=== PATIENT | female | born 1955 | race American Indian/Alaskan Native ===

== ENCOUNTER 2017-01-12 10:03 | Emergency (ER) | payer OTHER ==
[2017-01-12 13:41] VITALS: BP 126/79
[2017-01-12] MEDS ORDERED: NORCO 5/325 PO ONE (13:59)
--- NOTE | 2017-01-12 14:11 | Emergency Department Report ---
ED Extremity Problem HPI - General Chief complaint: Extremity Injury, Lower Stated complaint: RT KNEE SWOLLEN Time Seen by Provider: 01/12/17 13:43 Source: patient, family Mode of arrival: Wheelchair Limitations: Physical Limitation - History of Present Illness Initial comments: Patient here complaining of swelling and pain in right knee for 4 days. She denies any injury or trauma but reports that she has arthritis. She says she has been walking and noticed after she was walking her knee pain is worse pain is 8 out of 10 to her right knee. Denies any bruising or discoloration. Denies any numbness or tingling to lower extremity. Denies any fall. She says she took tramadol and it helped a little and she also took 2 aspirin this morning and it seemed to help a little MD Complaint: joint swelling, joint paint Onset/Timin -: days(s) Location: right, knee History of Same: Yes -: Yes arthralgia, No fever, No associated dyspnea, No associated chest pain Radiation: none Severity scale (0 -10): 6 Quality: aching Consistency: intermittent Improves with: immobilization, rest Worsens with: weight bearing, walking, exertion Associated Symptoms: arthralgias. denies: chest pain, shortness of breath, fever, myalgias, rash - Related Data Previous Rx's Medication Instructions Recorded Last Taken Type Ibuprofen [Motrin] 600 mg PO Q8H PRN #15 tablet 01/12/17 Unknown Rx Allergies Allergy/AdvReac Type Severity Reaction Status Date / Time No Known Allergies Allergy Verified 01/12/17 11:17 ED Review of Systems ROS: Stated complaint: RT KNEE SWOLLEN Other details as noted in HPI Comment: All other systems reviewed and negative Constitutional: denies: chills, fever Respiratory: no symptoms reported Cardiovascular: denies: chest pain, palpitations, edema, syncope Gastrointestinal: denies: abdominal pain, nausea, vomiting Musculoskeletal: arthralgia. denies: back pain, joint swelling, myalgia Skin: denies: rash Neurological: denies: headache, weakness, numbness, paresthesias, confusion, abnormal gait, vertigo ED Past Medical Hx - Past Medical History Previous Medical History?: Yes Hx Hypertension: Yes Hx Diabetes: Yes ("PREDIABETIC" ..NO MEDICATIONS) Hx Arthritis: Yes Additional medical history: THYROID. CHRONIC NECK / HEAD PAIN. OBESITY - Surgical History Past Surgical History?: Yes Additional Surgical History: TUBAL LIGATION. . HYSTERECTOMY - Family History Family history: no significant - Social History Smoking Status: Never Smoker Substance Use Type: Alcohol, Prescribed - Medications Home Medications: Home Medications Medication Instructions Recorded Confirmed Last Taken Type Ibuprofen [Motrin] 600 mg PO Q8H PRN #15 tablet 01/12/17 Unknown Rx ED Physical Exam - General Limitations: Physical Limitation General appearance: alert, in no apparent distress - Head Head exam: Present: atraumatic, normocephalic, normal inspection - Eye Eye exam: Present: normal appearance, PERRL, EOMI Pupils: Present: normal accommodation - ENT ENT exam: Present: normal exam, normal orophraynx, mucous membranes moist. Absent: TM's normal bilaterally, normal external ear exam - Neck Neck exam: Present: normal inspection, full ROM. Absent: tenderness, meningismus, thyromegaly - Respiratory Respiratory exam: Present: normal lung sounds bilaterally. Absent: respiratory distress, chest wall tenderness - Cardiovascular Cardiovascular Exam: Present: regular rate, normal rhythm, normal heart sounds - GI/Abdominal GI/Abdominal exam: Present: soft, normal bowel sounds. Absent: distended, tenderness, guarding, rebound, rigid - Expanded Lower Extremity Exam Right Hip exam: Present: normal inspection, full ROM. Absent: tenderness, swelling, abrasion, laceration, ecchymosis, deformity, crepidus, dislocation, erythema, external rotation, internal rotation, shortening, pelvic stability Upper Leg exam: Present: normal inspection, full ROM. Absent: tenderness, swelling, abrasion, laceration, ecchymosis, deformity, crepidus, dislocation, erythema Knee exam: Present: normal inspection, full ROM (patient with full range of motion to right knee but she said it hurts when she flexes her knee. No pain with extension.), swelling (mild swelling to anterior right knee), full knee extension. Absent: tenderness, abrasion, laceration, ecchymosis, deformity, crepidus, dislocation, erythema, effusion, pain w/ pronation/supination, posterior draw sign, pain/laxity with valgus, pain/laxity with varus Lower Leg exam: Present: normal inspection, full ROM. Absent: tenderness, swelling, abrasion, laceration, ecchymosis, deformity, crepidus, dislocation, erythema, palpable cord, Dami's sign Ankle exam: Present: normal inspection, full ROM. Absent: tenderness, swelling , abrasion, laceration, ecchymosis, deformity, crepidus, dislocation, erythema Foot/Toe exam: Present: normal inspection, full ROM. Absent: tenderness, swelling, abrasion, laceration, ecchymosis, deformity, crepidus, dislocation, erythema, amputation, puncture wound, foreign body, calcaneal tenderness, tenderness at base of 5th metatarsal, nail avulsion, subungual hematoma Neuro vascular tendon exam: Present: no vascular compromise, significant pain with passive ROM of distal joint (pain with flexion of his knee). Absent: pulse deficit, abnormal cap refill, motor deficit, sensory deficit, tendon deficit, extremity cold to touch, pallor, abnormal 2-point discrimination, decreased fine/light touch, foot drop, peroneal nerve deficit Gait: Positive: observed and limited by pain - Back Exam Back exam: Present: normal inspection, full ROM - Neurological Exam Neurological exam: Present: alert, oriented X3, normal gait, reflexes normal. Absent: motor sensory deficit - Psychiatric Psychiatric exam: Present: normal affect, normal mood - Skin Skin exam: Present: warm, dry, intact, normal color. Absent: rash ED Course Vital Signs 01/12/17 01/12/17 11:15 13:40 Temperature 97.9 F Pulse Rate 82 79 Respiratory 19 18 Rate Blood Pressure 132/82 Blood Pressure 126/79 [Right] O2 Sat by Pulse 100 99 Oximetry - Reevaluation(s) Reevaluation #1: 01/12/17 15:28 Patient given Kenefic 5/325 2 tablets in emergency room which she reports relief of pain - Orthopedic Splinting/Casting Injury #1 Side: right Lower Extremity Injury Location: knee Lower Extremity Immobilizer: Erick wrap ED Medical Decision Making - Radiology Data Radiology results: report reviewed X-ray of right knee reveals severe degenerative changes. No effusion, no fracture or dislocation. - Medical Decision Making ED Course: see Procedure note for details on splinting. She given Kenefic 5/325 mg 2 tablets in emergency room which relieved her knee pain. I discussed x-ray results with her and told her she will need to follow-up with orthopedic regarding severe degenerative changes in her knee. I explained to her that she needed to rest, elevate compress and ice area. Patient is stable in no acute distress. Patient discharged home with prescription for Motrin and to continue tramadol. Critical care attestation.: If time is entered above; I have spent that time in minutes in the direct care of this critically ill patient, excluding procedure time. ED Disposition Clinical Impression: Arthralgia of right knee Osteoarthritis of right knee Qualifiers: Osteoarthritis type: unspecified Qualified Code(s): M17.9 - Osteoarthritis of knee, unspecified Disposition: DISCHARGED TO HOME OR SELFCARE Is pt being admited?: No Does the pt Need Aspirin: No Condition: Stable Instructions: Arthralgia (ED), Knee Exercises (GEN), RICE Therapy (ED) Prescriptions: Ibuprofen [Motrin] 600 mg PO Q8H PRN #15 tablet PRN Reason: Pain Referrals: ASHLEY BRANDT MD [Staff Physician] - 2-3 Days Forms: Work/School Release Form(ED)
--- NOTE | 2017-01-12 14:30 | XRay Report ---
Right knee 3 views: History: Right knee pain/swelling. Findings: Marked narrowing of the medial compartment with minimal lateral and the patellofemoral compartment knee joint. Sclerotic adjacent articular surfaces with osteophyte suggestive severe degenerative changes. Chondrocalcification is noted. Impression: Severe degenerative changes being most pronounced in the medial compartment.
== END 2017-01-12 15:35 | disposition home or self-care (01) ==
LOC: ED 10:03
DX: M17.11 Unilateral primary osteoarthritis, right knee (principal); I10 Essential (primary) hypertension; E11.9 Type 2 diabetes mellitus without complications; G89.29 Other chronic pain; Z90.710 Acquired absence of both cervix and uterus
CPT/HCPCS: 99283

== ENCOUNTER 2017-04-07 08:01 | Outpatient (CLI) | payer OTHER ==
--- NOTE | 2017-04-07 09:22 | Mammography Report ---
Bilateral mammogram: Compared to 03/23/16. CAD study utilized. Findings: Predominance of adipose tissue bilaterally. Circumscribed densities right and left breasts without significant interval change. No microcalcification. Benign calcifications. Benign axillary nodes. Impression: Benign findings. Annual followup recommended. BI-RADS CATEGORY: 2 = Benign ACR BI-RADS MAMMOGRAPHIC CODES: 0 = Needs additional imaging evaluation; 1 = Negative; 2 = Benign; 3 = Probably benign; 4 = Suspicious; 5 = Malignant; 6 = Known biopsy-proven malignancy COMMENT: 1. Dense breast tissue, i.e., adenosis, fibrocystic changes, etc., may obscure an underlying neoplasm. 2. Approximately 10% of cancers are not detected with mammography. 3. A negative mammography report should not delay biopsy if a clinically suspicious mass is present. COMMENT: Patient follow-up letters are generated in [employer].
== END 2017-04-07 08:02 | disposition home or self-care (01) ==
LOC: MAMMO 08:01
PROVIDERS: ATTEND Family Medicine
DX: Z12.31 Encounter for screening mammogram for malignant neoplasm of breast (principal); I10 Essential (primary) hypertension
CPT/HCPCS: 77067; G0202

== ENCOUNTER 2018-04-08 07:42 | Outpatient (CLI) | payer OTHER ==
--- NOTE | 2018-04-08 09:27 | Mammography Report ---
Screening mammogram: There is an intermediate fibroglandular pattern symmetrically distributed bilaterally. There are multiple circumscribed nodules scattered in the upper outer portions of both breasts. The findings are not otherwise remarkable and these findings are unchanged compared to prior exam in March 2016. CAD used. Impression: Stable nodular breast pattern. Recommendation: Annual mammogram followup. BI-RADS CATEGORY: 2 = Benign ACR BI-RADS MAMMOGRAPHIC CODES: 0 = Needs additional imaging evaluation; 1 = Negative; 2 = Benign; 3 = Probably benign; 4 = Suspicious; 5 = Malignant; 6 = Known biopsy-proven malignancy COMMENT: 1. Dense breast tissue, i.e., adenosis, fibrocystic changes, etc., may obscure an underlying neoplasm. 2. Approximately 10% of cancers are not detected with mammography. 3. A negative mammography report should not delay biopsy if a clinically suspicious mass is present.
== END 2018-04-08 07:43 | disposition home or self-care (01) ==
LOC: MAMMO 07:42
PROVIDERS: ATTEND Family Medicine
DX: Z12.31 Encounter for screening mammogram for malignant neoplasm of breast (principal); I10 Essential (primary) hypertension; Z90.710 Acquired absence of both cervix and uterus
CPT/HCPCS: 77067

== ENCOUNTER 2019-04-26 09:36 | Outpatient (CLI) | payer OTHER ==
--- NOTE | 2019-04-26 10:47 | Mammography Report ---
BILATERAL DIGITAL SCREENING MAMMOGRAMS WITH CAD INDICATION: Screening. COMPARISONS: 04/08/2018 and 04/07/2017 FINDINGS: Craniocaudal and mediolateral oblique views of both breasts were obtained using 2-D digital acquisition. In addition to standard review, the examination was analyzed for possible abnormalities using a computer-assisted detection device (iCAD). There are scattered areas of fibroglandular density. A left upper outer parenchymal asymmetry requires additional imaging. On the MLO view, there is sugge stion of a mass measuring at least 2.5 cm. It is not well-demonstrated on the CC view. No suspicious calcifications. A right outer circumscribed mass also requires additional imaging. IMPRESSION: Bilateral asymmetries requiring additional evaluation. Recommend recall for bilateral spot compressio n views and bilateral breast ultrasound. BI-RADS CATEGORY 0: INCOMPLETE - NEED ADDITIONAL IMAGING EVALUATION AND/OR PRIOR MAMMOGRAMS FOR COMP ARISON Information is entered into a reminder system for a target due date for the next mammogram. The resul ts and recommendations were sent to the patient by mail. Signer Name: Javid Engel MD Signed: 04/26/2019 10:43 AM Workstation Name: [id number]
== END 2019-04-26 09:37 | disposition home or self-care (01) ==
LOC: MAMMO 09:36
DX: Z12.31 Encounter for screening mammogram for malignant neoplasm of breast (principal); I10 Essential (primary) hypertension; Z90.710 Acquired absence of both cervix and uterus
CPT/HCPCS: 77067

== ENCOUNTER 2019-06-02 08:46 | Outpatient (CLI) | payer OTHER ==
--- NOTE | 2019-06-02 17:32 | Mammography Report ---
BILATERAL DIGITAL DIAGNOSTIC MAMMOGRAM WITH CAD 06/02/2019 BILATERAL LIMITED BREAST ULTRASOUND INDICATION: Abnormal screening mammogram. Screening recall of both breasts. TECHNIQUE: Digital bilateral mammographic imaging was performed. Spot compression views were obtaine d. Limited ultrasound was performed. This examination was interpreted with the benefit of Computer- ded Detection (CAD) analysis. COMPARISON: Bilateral screening mammogram, 04/26/2019 and 04/08/2018. FINDINGS: Breast Density: There are scattered areas of fibroglandular density. MAMMOGRAPHIC FINDINGS: Right breast: There is a well-circumscribed 8 mm nodular density at the 9:00 position which persists on spot compression images. Left breast: Spot compression images of the upper outer left breast demonstrate a new irregular densi ty at the 1-2:00 position which measures approximately 5.5 x 5.0 cm. There are multiple enlarged lymp h nodes in the axillary tail. ULTRASOUND FINDINGS: Targeted ultrasound evaluation was performed of the area of interest. Right breast: Targeted sonographic evaluation of the upper outer right breast demonstrate multiple sc attered simple and mildly complicated cysts, the largest of which measures 1.5 cm. This corresponds t o the density seen on the mammogram. Left breast: Targeted sonographic evaluation of the left breast demonstrates an irregular solid mass with posterior shadowing. It is difficult to measure this mass due to its indistinct margins but is t hought to measure at least 3.4 X 2.1 cm. There are multiple enlarged lymph nodes within the axillary tail. IMPRESSION: Follow up recommendation: Biopsy BI-RADS Category 5: Highly Suggestive of Malignancy. 1. New irregular mass in the upper outer left breast as described which most likely represents carcin sherif with multiple pathologically enlarged left axillary tail lymph nodes. Ultrasound-guided biopsy an d surgical consultation is recommended. 2. Scattered right breast cysts. A "normal" or negative report should not discourage follow up or biopsy of a clinically significant f inding. A written summary of these findings will be mailed to the patient. The patient will be entered into a mammography reporting system which will generate a reminder letter for the patient's next appointmen t at the appropriate interval. According to the [employer], yearly mammograms are recommended starting at age 40 and continuing as long as a woman is in good health. Breast MRI is recommended for women with an shena roximately 20-25% or greater lifetime risk of breast cancer, including women with a strong family his tory of breast or ovarian cancer and women who have been treated for Hodgkin's disease. Signer Name: Bibi Conte MD Signed: 06/02/2019 5:28 PM Workstation Name: [id number]
--- NOTE | 2019-06-02 18:00 | Ultrasound Report ---
Please see diagnostic mammography report performed the same day. Signer Name: Bibi Conte MD Signed: 06/02/2019 5:56 PM Workstation Name: [id number]
== END 2019-06-02 08:47 | disposition home or self-care (01) ==
LOC: MAMMO 08:46
DX: R92.8 Other abnormal and inconclusive findings on diagnostic imaging of breast (principal); I10 Essential (primary) hypertension; Z90.710 Acquired absence of both cervix and uterus
CPT/HCPCS: 77066

== ENCOUNTER 2019-06-20 14:04 | Outpatient (CLI) | payer OTHER ==
--- NOTE | 2019-06-20 16:03 | Ultrasound Report ---
ULTRASOUND-GUIDED NEEDLE CORE BIOPSY LEFT BREAST WITH CLIP PLACEMENT CLINICAL: Left breast mass at 1:00 10 cm from the nipple. COMPARISON: 06/02/2019 FINDINGS: The procedure was explained to the patient and informed consent was obtained. Ultrasound demonstrated the previously identified irregular solid hypoechoic mass. I marked the breast with a felt tip marker and a timeout was called. The skin was prepped with Chloro -Prep and anesthetized with 1% lidocaine. Needle core biopsy was performed through small dermatotomy using ultrasound guidance, 2% lidocaine wi th epinephrine for deep anesthesia and a 14-gauge Achieve biopsy device. 4 cores were obtained and pl aced in formalin. A clip was deployed within the mass. The patient tolerated the procedure well and there were no apparent complications. Hemostasis was ach ieved with minimal effort and a sterile dressing was applied. A post procedure mammogram demonstrated concordant clip deployment. She left the department in good c ondition and was given instructions for wound care and follow-up. IMPRESSION: Uncomplicated ultrasound guided needle core biopsy with clip placement left breast. Signer Name: Javid Engel MD Signed: 06/20/2019 3:59 PM Workstation Name: [id number]
--- NOTE | 2019-06-21 15:48 | Mammography Report ---
LEFT DIGITAL DIAGNOSTIC MAMMOGRAM CLINICAL: For clip placement after ultrasound-guided needle biopsy. COMPARISON: 06/02/2019 FINDINGS: A localizer clip is identified within the previously described mass in the upper outer quad rant. IMPRESSION: Concordant clip deployment. Signer Name: Javid Engel MD Signed: 06/20/2019 3:39 PM Workstation Name: [id number]
== END 2019-06-20 14:05 | disposition home or self-care (01) ==
LOC: SPVWC 14:04
PROVIDERS: ATTEND Family Medicine
DX: N63.21 Unspecified lump in the left breast, upper outer quadrant (principal); I10 Essential (primary) hypertension; M19.90 Unspecified osteoarthritis, unspecified site; Z90.710 Acquired absence of both cervix and uterus; Z79.899 Other long term (current) drug therapy
CPT/HCPCS: 19083; 77065; A4648; 88305